=== PATIENT | female | born 1960 | race Caucasian/White ===

== ENCOUNTER 2020-07-21 11:06 | Emergency (ER) | payer MEDICAID ==
[~2020-07-21] VITALS: Ht 170.2 cm; Wt 115.0 kg
[2020-07-21] MEDS ORDERED: ACETAMINOPHEN 325 MG TABLET ONE (11:21)
[2020-07-21] MEDS ORDERED: HYDROcodone/APAP 5/325 TABLET PO ONE (11:30)
[2020-07-21] MEDS ORDERED: HYDROcodone/APAP 5/325 TABLET ONE (11:38)
--- NOTE | 2020-07-21 11:52 | NUR ---
BEAR DANIEL, EXTRA BLANKETS, AND A PHONE PROVIDED. PT STATES SHE HASN'T SINCE YESTERDAY MORNING. PROVIDER NOTIFIED.
[2020-07-21 11:55] LABS: BASOPHILS % (AUTO) 1 % (0-1); EOSINOPHILS % (AUTO) 1 % (1-7); LYMPHOCYTES % (AUTO) 20 % (22-44); MD NO; MEAN CORPUSCULAR HEMOGLOBIN 32.2 pg (27.0-34.8); MEAN CORPUSCULAR HGB CONC 34.1 g/dL (32.4-35.8); MEAN PLATELET VOLUME 6.2 fL (7.4-10.4); MONOCYTES % (AUTO) 6 % (2-9); NEUTROPHILS % (AUTO) 73 % (42-75); PLATELET COUNT 249 x10^3/uL (130-400); RED BLOOD COUNT 4.19 x10^6/uL (3.82-5.3); RED CELL DISTRIBUTION WIDTH 13.7 % (9.6-15.2)
[2020-07-21 12:07] LABS: ALANINE AMINOTRANSFERASE 33 U/L (12-78); ALBUMIN 3.4 g/dL (3.4-5.0); CALCIUM 9.4 mg/dL (8.5-10.1); CHLORIDE 110 mmol/L (98-107); CREATININE 0.91 mg/dL (0.55-1.02)
[2020-07-21 12:09] LABS: ALKALINE PHOSPHATASE 111 U/L (45-117); BILIRUBIN,TOTAL 0.3 mg/dL (0.2-1.0); TOTAL PROTEIN 6.7 g/dL (6.4-8.2)
[2020-07-21 12:42] LABS: ANION GAP 5 mmol/L (5-15)
--- NOTE | 2020-07-21 13:13 | NUR ---
FOOD TRAY PROVIDED. CONTACTED [facility] WHERE PT'S BELONGING'S ARE TO OBTAIN ADDRESS FOR TAXI VOUCHER.
[2020-07-21 13:21] VITALS: BP 125/76
== END 2020-07-21 13:30 | disposition home or self-care (01) ==
LOC: ED 13:00
DX: J44.9 Chronic obstructive pulmonary disease, unspecified (principal); R06.00 Dyspnea, unspecified; R06.02 Shortness of breath; F17.210 Nicotine dependence, cigarettes, uncomplicated
CPT/HCPCS: 36415; 71045; 80053; 84145; 85025; 93005; 99285; 99406

== ENCOUNTER 2020-08-23 12:28 | Emergency (ER) | payer MEDICAID ==
[~2020-08-23] VITALS: Ht 154.9 cm; Wt 85.0 kg
--- NOTE | 2020-08-23 12:30 | NUR ---
Pt arrived via EMS, changed into gown, placed on bedside monitor and grit removal operator completed. Pt noted to pressured-like speech and flow of thought speech patterns at this time Pt states she has not been taking her bipolar meds since moving here from [place] 3 weeks ago secondary to being in [place] "curing" her of this malady. Pt with multiple complaints, but main reason for coming is for med refill per her statement.
[2020-08-23] MEDS ORDERED: PLEASE ENTER HEIGHT AND WEIGHT MC SCH (13:00)
[2020-08-23] MEDS ORDERED: LISINOPRIL 10 MG TABLET PO ONE (13:00)
[2020-08-23] MEDS ORDERED: HYDROcodone/APAP 5/325 TABLET PO ONE (13:00)
--- NOTE | 2020-08-23 13:00 | NUR ---
Assisted to the restroom with steady gait noted.
[2020-08-23 13:11] LABS: BASOPHILS % (AUTO) 1 % (0-1); EOSINOPHILS % (AUTO) 2 % (1-7); LYMPHOCYTES % (AUTO) 23 % (22-44); MEAN CORPUSCULAR HEMOGLOBIN 32.5 pg (27.0-34.8); MEAN CORPUSCULAR HGB CONC 35.1 g/dL (32.4-35.8); MEAN PLATELET VOLUME 6.3 fL (7.4-10.4); MONOCYTES % (AUTO) 9 % (2-9); NEUTROPHILS % (AUTO) 66 % (42-75); PLATELET COUNT 287 x10^3/uL (130-400); RED BLOOD COUNT 4.46 x10^6/uL (3.82-5.3)
[2020-08-23 13:12] LABS: MD NO
[2020-08-23 13:17] LABS: ALANINE AMINOTRANSFERASE 23 U/L (12-78); ALBUMIN 3.8 g/dL (3.4-5.0); ANION GAP 8 mmol/L (5-15); CALCIUM 9.1 mg/dL (8.5-10.1); CHLORIDE 110 mmol/L (98-107); CREATININE 0.99 mg/dL (0.55-1.02)
[2020-08-23 13:21] LABS: ALKALINE PHOSPHATASE 123 U/L (45-117); BILIRUBIN,TOTAL 0.4 mg/dL (0.2-1.0); TOTAL PROTEIN 7.4 g/dL (6.4-8.2); TROPONIN I < 0.015 ng/mL (0.000-0.045)
[2020-08-23] MEDS ORDERED: HYDROcodone/APAP 5/325 TABLET ONE (13:23)
[2020-08-23] MEDS ORDERED: LISINOPRIL 5 MG TABLET ONE (13:24)
--- NOTE | 2020-08-23 13:24 | NUR ---
Medications given as ordered.
--- NOTE | 2020-08-23 13:30 | NUR ---
Pt aware of pending d/c. Provided snacks while awaiting d/c paperwork.
--- NOTE | 2020-08-23 13:58 | NUR ---
Pt ambulatory hallway to d/c desk from room 26 and asked to be taken the rest of the way by wheelchair when we came upon one in the hallway. Pt taken by wheelchair the rest of the way and taxi voucher in hand to get back home.
[2020-08-23 14:21] VITALS: BP 140/89
== END 2020-08-23 14:24 | disposition home or self-care (01) ==
LOC: ED 13:55
DX: M79.661 Pain in right lower leg (principal); G89.29 Other chronic pain; F17.210 Nicotine dependence, cigarettes, uncomplicated; Z76.0 Encounter for issue of repeat prescription; R94.31 Abnormal electrocardiogram [ECG] [EKG]; I11.0 Hypertensive heart disease with heart failure; I50.9 Heart failure, unspecified; J44.9 Chronic obstructive pulmonary disease, unspecified
CPT/HCPCS: 36415; 80053; 84484; 85025; 93005; 99284; 99406

== ENCOUNTER 2020-08-25 20:09 | Emergency (ER) | payer MEDICAID ==
[~2020-08-25] VITALS: Ht 170.2 cm; Wt 131.0 kg
--- NOTE | 2020-08-25 20:20 | NUR ---
report received from [facility]. BIB [facility] for LLE swelling and pain. requesting pain medications. requesting warm blankets requesting water requesting food requesting heater requesting rest RN redirected patient to reason bringing her to ER. no swelling visulaized in BLE. + palpable pulses in BLE. during assessment and triage patient repeatedly asking for pain medication and warm blankets. call dejesus in reach. safety maintained
[2020-08-25] MEDS ORDERED: MUPIROCIN OINT 2%, 22GM TP ONE (20:30)
[2020-08-25] MEDS ORDERED: HYDROcodone/APAP 5/325 TABLET PO ONE (20:30)
[2020-08-25] MEDS ORDERED: HYDROcodone/APAP 5/325 TABLET ONE (20:53)
--- NOTE | 2020-08-25 21:01 | NUR ---
pain medication administered per order. mupirocin ointment requested from pharmacy. warm blanket provided. water provided. patient request crackers. VS remain stable on RA. paient resting on L side.
--- NOTE | 2020-08-25 21:27 | NUR ---
PATIENT FOUND STANDING AT BEDSIDE. REPORTS NO PAIN AT THIS TIME. STEADY GAIT
--- NOTE | 2020-08-25 21:37 | NUR ---
discharge instructions reviewed with patient. sent home with mupirocin ointment as she repeats statement that she is unable to fill this prescription for known MRSA face wound. this is a closed wound but has cellulitis properties. this was also applied to wounds prior to dc. steady gait. no further questions. no IV placed during this visit. taxi voucher requested
[2020-08-25 21:38] VITALS: BP 133/109
== END 2020-08-25 21:47 | disposition home or self-care (01) ==
LOC: ED 21:12
DX: L01.01 Non-bullous impetigo (principal); G89.29 Other chronic pain; Z76.0 Encounter for issue of repeat prescription; Z72.9 Problem related to lifestyle, unspecified; I11.0 Hypertensive heart disease with heart failure; I50.9 Heart failure, unspecified; J44.9 Chronic obstructive pulmonary disease, unspecified
CPT/HCPCS: 99283